=== PATIENT | male | born 1985 | race Caucasian/White ===

== ENCOUNTER 2016-09-26 19:27 | Emergency (ER) | payer OTHER ==
[~2016-09-26] VITALS: Ht 193 cm; Wt 91.2 kg
[2016-09-26 19:45] VITALS: BP 155/85
[2016-09-26] MEDS ORDERED: LORAZEPAM 1 MG TABLET PO ONE (20:00)
[2016-09-26] MEDS ORDERED: LORAZEPAM 1 MG TABLET ONE (20:08)
== END 2016-09-26 20:20 | disposition home or self-care (01) ==
LOC: ER 19:27
DX: F41.9 Anxiety disorder, unspecified (principal); G40.909 Epilepsy, unspecified, not intractable, without status epilepticus; Z88.8 Allergy status to other drugs, medicaments and biological substances; F17.210 Nicotine dependence, cigarettes, uncomplicated; F10.20 Alcohol dependence, uncomplicated
CPT/HCPCS: 99284; A4606; Z7610